=== PATIENT | female | born 1970 | race Caucasian/White ===

== ENCOUNTER 2017-02-28 06:05 | Emergency (ER) | payer MEDICAID ==
[~2017-02-28] VITALS: Ht 165.1 cm; Wt 95.5 kg
[2017-02-28] MEDS ORDERED: FLUCONAZOLE 100 MG TABLET PO ONE (07:00)
[2017-02-28] MEDS ORDERED: SODIUM CHLORIDE 0.9% 1,000ML IVBOLUS ONE (07:00)
[2017-02-28 07:30] LABS: BLOOD UREA NITROGEN 14 mg/dL (7-18)
[2017-02-28 08:20] VITALS: BP 138/87
== END 2017-02-28 08:22 | disposition home or self-care (01) ==
LOC: ED 06:28
DX: N30.90 Cystitis, unspecified without hematuria (principal); B37.3 Candidiasis of vulva and vagina; E11.9 Type 2 diabetes mellitus without complications; I10 Essential (primary) hypertension
CPT/HCPCS: 36415; 80048; 81001; 82010; 82040; 82962; 85025; 87077; 87086; 87147; 87186; 99284

== ENCOUNTER 2018-06-06 02:12 | Emergency (ER) | payer MEDICAID ==
[~2018-06-06] VITALS: Ht 165.1 cm; Wt 87.0 kg
[2018-06-06 02:18] VITALS: BP 138/89
== END 2018-06-06 03:27 | disposition home or self-care (01) ==
LOC: ED 03:21
DX: B37.3 Candidiasis of vulva and vagina (principal); B37.2 Candidiasis of skin and nail; E11.9 Type 2 diabetes mellitus without complications
CPT/HCPCS: 99283

== ENCOUNTER 2018-07-21 12:36 | Emergency (ER) | payer MEDICAID ==
[~2018-07-21] VITALS: Ht 165.1 cm; Wt 88.0 kg
[2018-07-21] MEDS ORDERED: ONDANSETRON ODT 4 MG ONE (13:15)
[2018-07-21] MEDS ORDERED: IBUPROFEN 200 MG TABLET ONE ×2 (13:15→13:17)
[2018-07-21] MEDS ORDERED: IBUPROFEN 200 MG TABLET PO ONE (13:30)
[2018-07-21] MEDS ORDERED: ONDANSETRON ODT 4 MG PO ONE (13:30)
[2018-07-21 15:02] VITALS: BP 122/61
== END 2018-07-21 15:04 | disposition home or self-care (01) ==
LOC: ED 13:36
DX: G89.11 Acute pain due to trauma (principal); M79.672 Pain in left foot; E11.9 Type 2 diabetes mellitus without complications; X58.XXXA Exposure to other specified factors, initial encounter; Y93.89 Activity, other specified; Y92.009 Unspecified place in unspecified non-institutional (private) residence as the place of occurrence of the external cause; Y99.8 Other external cause status
CPT/HCPCS: 73630; 99284; Q0162

== ENCOUNTER 2018-12-16 13:16 | Emergency (ER) | payer MEDICAID ==
[~2018-12-16] VITALS: Ht 165.1 cm; Wt 92.6 kg
[2018-12-16 13:21] VITALS: BP 137/84
== END 2018-12-16 14:49 | disposition home or self-care (01) ==
LOC: ED 14:43
DX: L24.5 Irritant contact dermatitis due to other chemical products (principal)
CPT/HCPCS: 99281

== ENCOUNTER 2019-07-14 20:51 | Emergency (ER) | payer MEDICAID ==
[~2019-07-14] VITALS: Ht 165.1 cm; Wt 93.6 kg
[2019-07-14] MEDS ORDERED: CLINDAMYCIN 300 MG CAPSULE PO ONE (22:00)
[2019-07-14] MEDS ORDERED: FLUCONAZOLE 100 MG TABLET PO ONE ×2 (22:00→22:30)
[2019-07-14] MEDS ORDERED: FLUCONAZOLE 50 MG TABLET PO ONE (22:00)
[2019-07-14] MEDS ORDERED: FLUCONAZOLE 100 MG TABLET ONE (22:02)
[2019-07-14] MEDS ORDERED: CLINDAMYCIN 300 MG CAPSULE ONE (22:06)
== END 2019-07-14 22:10 | disposition home or self-care (01) ==
LOC: ED 22:05
DX: B37.3 Candidiasis of vulva and vagina (principal); L73.9 Follicular disorder, unspecified
CPT/HCPCS: 99283

== ENCOUNTER 2019-11-04 03:50 | Emergency (ER) | payer MEDICAID ==
[~2019-11-04] VITALS: Ht 165.1 cm; Wt 94.0 kg
[2019-11-04 03:52] VITALS: BP 146/98
--- NOTE | 2019-11-04 04:10 | NUR ---
Pt alert and ambulatory to room. NAD. Pt reports red rash to right groin x2 days. Pt reports increasing redness over the 2 days. Pt given gown. Call light within reach. Pt reports only hx is DM.
[2019-11-04] MEDS ORDERED: INSU100I34 IM (04:12)
[2019-11-04] MEDS ORDERED: INSU100V9 IM (04:13)
[2019-11-04] MEDS ORDERED: OXYcodone/APAP 5/325MG TABLET ONE (04:24)
[2019-11-04] MEDS ORDERED: LIDOCAINE-MPF 1%, 5ML ONE ×2 (04:25→04:46)
[2019-11-04] MEDS ORDERED: LIDOCAINE-MPF 1%, 5ML INFIL ONE (04:30)
[2019-11-04] MEDS ORDERED: OXYcodone/APAP 5/325MG TABLET PO ONE (04:30)
--- NOTE | 2019-11-04 04:31 | NUR ---
Pain medication held at this time d/t pt driving onself home. aware. Pt agreeable to holding pain meds.
--- NOTE | 2019-11-04 04:40 | NUR ---
and female technology infusion specialist at bedside for I/D.
--- NOTE | 2019-11-04 04:48 | NUR ---
Lidocaine adminstered by MD at bedside.
--- NOTE | 2019-11-04 05:30 | NUR ---
Pt alert and oriented at time of d/c. NAD. Pt educated on wound care, prescriptions, home care, follow-up and S/Sx to return. Pt VU. Pt ambulated out of ER.
== END 2019-11-04 05:39 | disposition home or self-care (01) ==
LOC: ED 05:33
DX: L02.214 Cutaneous abscess of groin (principal); I10 Essential (primary) hypertension; E11.9 Type 2 diabetes mellitus without complications; F17.200 Nicotine dependence, unspecified, uncomplicated
CPT/HCPCS: 10060; 99283

== ENCOUNTER 2019-11-06 12:36 | Emergency (ER) | payer SELFPAY ==
[~2019-11-06] VITALS: Ht 165.1 cm; Wt 94.0 kg
[~2019-11-06 12:36] MED LIST: INSU100I34 IM; INSU100V9 IM
[2019-11-06 12:53] VITALS: BP 138/92
--- NOTE | 2019-11-06 15:08 | NUR ---
no answer in lobby.
--- NOTE | 2019-11-06 15:30 | NUR ---
NO ANSWER IN LOBBY
--- NOTE | 2019-11-06 16:13 | NUR ---
NO ANSWER IN LOBBY
== END 2019-11-06 16:15 | disposition left against medical advice (07) ==
LOC: ED 14:00
DX: N76.4 Abscess of vulva (principal)
CPT/HCPCS: 99281

== ENCOUNTER 2019-11-25 17:29 | Emergency (ER) | payer MEDICAID ==
[~2019-11-25] VITALS: Ht 165.1 cm; Wt 93.0 kg
[2019-11-25] MEDS ORDERED: SODIUM CHLORIDE 0.9% 1,000ML IVBOLUS ONE ×2 (18:00→19:00)
[2019-11-25] MEDS ORDERED: SODIUM CHLORIDE FLUSH 10ML SYR IVF ONE (18:00)
--- NOTE | 2019-11-25 18:16 | NUR ---
Pt here for new onset of not feeling well after going to [place] and eating at the [employer] and then got sick. Pt reports that she is diabetic and stoped taking her medications for two months. Pt blood glucose read high for ems. Pt connected to monitors and call light in reach. vss
[2019-11-25 18:28] LABS: ALBUMIN 2.8 g/dL (3.4-5.0); ANION GAP 12 mmol/L (5-15); BASOPHILS % (AUTO) 0 % (0-1); CALCIUM 8.7 mg/dL (8.5-10.1); CHLORIDE 95 mmol/L (98-107); CREATININE 0.94 mg/dL (0.55-1.02); EOSINOPHILS % (AUTO) 0 % (1-7); LYMPHOCYTES # (AUTO) 0.58 x10^3/uL (1-3.4); LYMPHOCYTES % (AUTO) 4 % (22-44); MD NO; MEAN CORPUSCULAR HEMOGLOBIN 27.7 pg (27.0-34.8); MEAN CORPUSCULAR HGB CONC 33.9 g/dL (32.4-35.8); MEAN CORPUSCULAR VOLUME 81.7 fL (80-100); MEAN PLATELET VOLUME 9.1 fL (7.4-10.4); MONOCYTES # (AUTO) 0.79 x10^3/uL (0.2-0.8); MONOCYTES % (AUTO) 6 % (2-9); NEUTROPHILS % (AUTO) 90 % (42-75); PLATELET COUNT 245 x10^3/uL (130-400); RED BLOOD COUNT 4.98 x10^6/uL (3.82-5.3); RED CELL DISTRIBUTION WIDTH 14.2 % (9.6-15.2)
[2019-11-25 18:41] LABS: MICROSCOPIC INDICATED
[2019-11-25 18:42] LABS: CULTURE INDICATED? NO
[2019-11-25] MEDS ORDERED: CEFTRIAXONE PMX 1GM/50ML 50 ML ONE (19:30)
[2019-11-25] MEDS ORDERED: CEFTRIAXONE PMX 1GM/50ML 50 ML IVPB ONE (19:30)
[2019-11-25 20:13] VITALS: BP 115/79
--- NOTE | 2019-11-25 20:45 | NUR ---
Patient/Caregiver given discharge instructions and they have confirmed that they understand the instructions. Patient ambulatory with steady gait.
== END 2019-11-25 21:33 | disposition home or self-care (01) ==
LOC: ED 17:45
DX: B34.9 Viral infection, unspecified (principal); E11.65 Type 2 diabetes mellitus with hyperglycemia; I10 Essential (primary) hypertension; F17.200 Nicotine dependence, unspecified, uncomplicated; M79.10 Myalgia, unspecified site
CPT/HCPCS: 36415; 71045; 80048; 81001; 82040; 82962; 83605; 84145; 85025; 87040; 96361; 96365; 99284; J0696; J7030